=== PATIENT | female | born 1960 | race Two or more races ===

== ENCOUNTER 2020-01-13 17:39 | Inpatient (IN) | payer MEDICARE, MEDICAID ==
[~2020-01-13] VITALS: Ht 167.6 cm; Wt 113.4 kg
[2020-01-13] MEDS ORDERED: ONDANSETRON HCL 4MG/2ML INJ IV STA (18:23)
[2020-01-13] MEDS ORDERED: SODIUM CHLORIDE 0.9% 1,000 ML IV ONE (18:30)
[2020-01-13] MEDS ORDERED: METOCLOPRAMIDE HCL 10MG/2ML VIAL IV ONE (19:15)
[2020-01-13] MEDS ORDERED: MAGNESIUM 1 G PREMIX 100 ML IV ONE (19:15)
[2020-01-13 20:01] LABS: CLARITY URINE CLOUDY (CLEAR); COLOR URINE YELLOW (YELLOW); KETONES URINE NEGATIVE (NEGATIVE); LEUKOCYTE ESTERASE URINE NEGATIVE (NEGATIVE); NITRITE URINE NEGATIVE (NEGATIVE); OCCULT BLOOD URINE TRACE (NEGATIVE); PROTEIN URINE NEGATIVE (NEGATIVE); SPECIFIC GRAVITY URINE 1.028 (1.005-1.030)
[2020-01-13 20:07] LABS: EOSINOPHILS % 0.9 % (0.0-5.0); HEMATOCRIT. 45.3 % (36.0-48.0); HEMOGLOBIN. 14.9 g/dL (12.0-16.0); LYMPHOCYTES % 28.7 % (20.0-50.0); MEAN CORPUSCULAR HEMOGLOBIN 28.1 pg (28.0-32.0); MEAN CORPUSCULAR VOLUME 85.3 fL (81.0-99.0); MEAN PLATELET VOLUME 7.9 fl (7.4-10.4); MONOCYTES % 4.5 % (2.0-8.0); NEUTROPHILS % 64.9 % (40.0-76.0); PLATELET 326 x1000/uL (130-400); RED BLOOD CELL COUNT 5.31 mill/uL (4.2-5.4); RED CELL DISTRIBUTION WIDTH 15.1 % (11.6-14.6)
[2020-01-13 20:13] LABS: CHLORIDE 106 mEq/L (98-107)
[2020-01-13 20:16] LABS: METHADONE URINE SCREEN NEGATIVE (NEGATIVE)
[2020-01-13 20:17] LABS: *AMPHETAMINES SCREEN URINE NEGATIVE (NEGATIVE); *BARBITURATES SCREEN URINE NEGATIVE (NEGATIVE); *BENZODIAZEPINES SCREEN URINE NEGATIVE (NEGATIVE); CANNABINOID URINE SCREEN NEGATIVE (NEGATIVE); OPIATES URINE SCREEN NEGATIVE (NEGATIVE); PHENCYCLIDINE URINE SCREEN NEGATIVE (NEGATIVE)
[2020-01-13 20:18] LABS: *COCAINE SCREEN URINE NEGATIVE (NEGATIVE); ETHANOL BLOOD < 10 mg/dL; PROTHROMBIN TIME 10.3 sec (9.6-11.0)
[2020-01-13] MEDS ORDERED: ONDANSETRON HCL 4MG/2ML INJ IV ONE (23:30)
[2020-01-13] MEDS ORDERED: MECLIZINE 25MG TABLET PO ONE (23:30)
[2020-01-14 04:50] VITALS: BP 161/70
[2020-01-14] MEDS ORDERED: POTA10CA42 PO (05:13)
[2020-01-14] MEDS ORDERED: CYCL10TA7 PO (05:13)
[2020-01-14] MEDS ORDERED: ASPI-1497 PO (05:13)
[2020-01-14] MEDS ORDERED: AMLO10TA80 PO (05:13)
[2020-01-14] MEDS ORDERED: GLIM1TAB PO (05:13)
[2020-01-14] MEDS ORDERED: ERGO2000 PO (05:13)
[2020-01-14] MEDS ORDERED: METF-416 PO (05:13)
[2020-01-14] MEDS ORDERED: ATOR10TA PO (05:13)
[2020-01-14] MEDS ORDERED: DEXTROSE 50% WATER 50ML SYRINGE IV PRN (05:15)
[2020-01-14] MEDS ORDERED: CYCLOBENZAPRINE 10MG TABLET PO PRN (05:15)
[2020-01-14] MEDS ORDERED: HYDROCODONE/ACETAMINOPHEN 5/325MG TABLET PO PRN (05:15)
[2020-01-14] MEDS: INSULIN LISPRO 100 UNITS/ML SUBCUT SCH ×4 (06:06→20:17)
[2020-01-14] MEDS: BLOOD SUGAR DIAGNOSTIC STRIP TEST SCH ×4 (06:06→19:47)
[2020-01-14 08:00] VITALS: BP 120/75
[2020-01-14] MEDS: ASPIRIN 81MG EC TABLET PO SCH (09:20)
[2020-01-14] MEDS: AMLODIPINE 10MG TABLET PO SCH (09:20)
[2020-01-14] MEDS: LISINOPRIL 20MG TABLET PO SCH (09:20)
[2020-01-14 12:00] VITALS: BP 135/67
[2020-01-14] MEDS: CLOPIDOGREL 75MG TABLET PO SCH (15:30)
[2020-01-14 16:00] VITALS: BP_SYST 134; BP_SYST 135; BP_DIAS 67; BP_DIAS 68
[2020-01-14] MEDS: ATORVASTATIN CALCIUM 10MG TABLET PO SCH (19:47)
[2020-01-14] MEDS: ENOXAPARIN 30MG/0.3ML SYR SUBCUT SCH (19:47)
[2020-01-14 20:00] VITALS: BP 135/63
[2020-01-15] VITALS: BP 149/78
[2020-01-15 04:00] VITALS: BP 144/74
[2020-01-15] MEDS: BLOOD SUGAR DIAGNOSTIC STRIP TEST SCH ×5 (06:21→20:28)
[2020-01-15] MEDS: INSULIN LISPRO 100 UNITS/ML SUBCUT SCH ×4 (06:21→20:44)
[2020-01-15 08:00] VITALS: BP 140/70
[2020-01-15] MEDS: CLOPIDOGREL 75MG TABLET PO SCH (08:20)
[2020-01-15] MEDS: ENOXAPARIN 30MG/0.3ML SYR SUBCUT SCH ×2 (08:21→20:27)
[2020-01-15] MEDS: ASPIRIN 81MG EC TABLET PO SCH (08:21)
[2020-01-15] MEDS: LISINOPRIL 20MG TABLET PO SCH (08:21)
[2020-01-15] MEDS: AMLODIPINE 10MG TABLET PO SCH (08:21)
[2020-01-15 12:00] VITALS: BP 144/80
[2020-01-15 16:00] VITALS: BP 145/76
[2020-01-15 20:00] VITALS: BP 149/76
[2020-01-15] MEDS: ATORVASTATIN CALCIUM 10MG TABLET PO SCH (20:28)
[2020-01-16] VITALS: BP 150/82
[2020-01-16 04:00] VITALS: BP 143/81
[2020-01-16] MEDS: INSULIN LISPRO 100 UNITS/ML SUBCUT SCH (06:49)
[2020-01-16] MEDS: BLOOD SUGAR DIAGNOSTIC STRIP TEST SCH (06:49)
[2020-01-16 08:00] VITALS: BP 144/81
[2020-01-16] MEDS: LISINOPRIL 20MG TABLET PO SCH (09:31)
[2020-01-16] MEDS: AMLODIPINE 10MG TABLET PO SCH (09:31)
[2020-01-16] MEDS: ASPIRIN 81MG EC TABLET PO SCH (09:31)
[2020-01-16] MEDS: ENOXAPARIN 30MG/0.3ML SYR SUBCUT SCH (09:32)
[2020-01-16] MEDS: CLOPIDOGREL 75MG TABLET PO SCH (09:32)
[2020-01-16 12:00] VITALS: BP 140/75
[2020-01-16] MEDS ORDERED: CLOP75TA15 PO (12:31)
[2020-01-16] MEDS ORDERED: ASPI-1497 PO (12:31)
[2020-01-16] MEDS ORDERED: LOSA50TA41 MT (12:31)
[2020-01-16 15:08] VITALS: BP 140/75
[2020-01-16 15:53] LABS: BASOPHILS % 1.1 % (0.0-2.0); EOSINOPHILS % 2.2 % (0.0-5.0); HEMATOCRIT. 41.7 % (36.0-48.0); HEMOGLOBIN. 13.6 g/dL (12.0-16.0); MEAN CORPUSCULAR HEMOGLOBIN 28.2 pg (28.0-32.0); MEAN CORPUSCULAR VOLUME 86.1 fL (81.0-99.0); MEAN PLATELET VOLUME 7.7 fl (7.4-10.4); MONOCYTES % 6.6 % (2.0-8.0); NEUTROPHILS % 47.1 % (40.0-76.0); PLATELET 279 x1000/uL (130-400); RED BLOOD CELL COUNT 4.84 mill/uL (4.2-5.4); RED CELL DISTRIBUTION WIDTH 14.8 % (11.6-14.6)
== END 2020-01-16 16:03 | disposition home or self-care (01) | DRG 65 ==
LOC: ER 17:39 → 8WST 01-14 00:09 → ENRESERV 01-14 01:53 → 8WST 01-14 05:06
PROVIDERS: ADMIT Internal Medicine; ATTEND Internal Medicine
DX: I63.89 Other cerebral infarction (principal); Z68.41 Body mass index [BMI] 40.0-44.9, adult; E11.9 Type 2 diabetes mellitus without complications; F17.210 Nicotine dependence, cigarettes, uncomplicated; E66.01 Morbid (severe) obesity due to excess calories; Z96.649 Presence of unspecified artificial hip joint; I10 Essential (primary) hypertension; Z71.3 Dietary counseling and surveillance; Z79.82 Long term (current) use of aspirin; Z98.1 Arthrodesis status; Z79.84 Long term (current) use of oral hypoglycemic drugs; Z79.899 Other long term (current) drug therapy
CPT/HCPCS: 36415; 70551; 71045; 80048; 80053; 80061; 80305; 80307; 80320; 80329; 81003; 82962; 83036; 83605; 83880; 84484; 85025; 86850; 86900; 93005; 93306; 93880; 97162; 99285; J1650; J1815; J2405; J2765; J3475; J7030; J8597; G0480

== ENCOUNTER 2021-01-01 10:16 | Emergency (ER) | payer MEDICARE, MEDICAID ==
[~2021-01-01] VITALS: Ht 167.6 cm; Wt 105.0 kg
[~2021-01-01 10:16] MED LIST: AMLO10TA80 PO; ASPI-1497 PO; ATOR10TA PO; CLOP75TA15 PO; CYCL10TA7 PO; ERGO2000 PO; GLIM1TAB PO; LOSA50TA41 MT; METF-416 PO; POTA10CA42 PO
[2021-01-01] MEDS ORDERED: KETOROLAC 60MG/2ML VIAL IM ONE (12:15)
[2021-01-01] MEDS ORDERED: TRAM50TA3 MT (14:43)
[2021-01-01 14:48] VITALS: BP 137/85
== END 2021-01-01 14:49 | disposition home or self-care (01) ==
LOC: ER 10:16
DX: M25.511 Pain in right shoulder (principal); I10 Essential (primary) hypertension; E11.9 Type 2 diabetes mellitus without complications; E78.00 Pure hypercholesterolemia, unspecified; Z79.899 Other long term (current) drug therapy; Z90.49 Acquired absence of other specified parts of digestive tract
CPT/HCPCS: 73030; 73060; 96372; 99284; J1885

== ENCOUNTER 2021-03-31 19:50 | Emergency (ER) | payer MEDICARE, MEDICAID ==
[~2021-03-31] VITALS: Ht 167.6 cm; Wt 98.0 kg
[~2021-03-31 19:50] MED LIST changes: -CYCL10TA7 PO; +TRAM50TA3 MT
[2021-03-31] MEDS ORDERED: KETOROLAC 60MG/2ML VIAL IM ONE (20:30)
[2021-03-31 21:27] LABS: CLARITY URINE CLOUDY (CLEAR); COLOR URINE YELLOW (YELLOW); KETONES URINE TRACE (NEGATIVE); LEUKOCYTE ESTERASE URINE NEGATIVE (NEGATIVE); NITRITE URINE NEGATIVE (NEGATIVE); OCCULT BLOOD URINE TRACE (NEGATIVE); PH URINE 5.5 (4.5-8.0); PROTEIN URINE NEGATIVE (NEGATIVE); SPECIFIC GRAVITY URINE 1.026 (1.005-1.030); UROBILINOGEN URINE 0.2 E.U./dL (0.2-1.0)
[2021-03-31 21:51] LABS: BASOPHILS % 0.9 % (0.0-2.0); EOSINOPHILS % 2.2 % (0.0-5.0); HEMATOCRIT. 39.3 % (36.0-48.0); HEMOGLOBIN. 13.1 g/dL (12.0-16.0); LYMPHOCYTES % 38.4 % (20.0-50.0); MEAN CORPUSCULAR HEMOGLOBIN 27.3 pg (28.0-32.0); MEAN PLATELET VOLUME 6.9 fl (7.4-10.4); MONOCYTES % 6.2 % (2.0-8.0); NEUTROPHILS % 52.3 % (40.0-76.0); PLATELET 344 x1000/uL (130-400); RED CELL DISTRIBUTION WIDTH 16.7 % (11.6-14.6)
[2021-03-31 21:55] LABS: CHLORIDE 107 mEq/L (98-107)
[2021-03-31] MEDS ORDERED: IBUP-2028 MT (22:51)
[2021-03-31] MEDS ORDERED: CIPR-263 MT (22:51)
[2021-03-31 22:55] VITALS: BP 137/82
== END 2021-03-31 23:03 | disposition home or self-care (01) ==
LOC: ER 19:50
DX: M54.50 Low back pain, unspecified (principal); E11.9 Type 2 diabetes mellitus without complications; E78.00 Pure hypercholesterolemia, unspecified; I10 Essential (primary) hypertension; Z90.49 Acquired absence of other specified parts of digestive tract; Z79.899 Other long term (current) drug therapy
CPT/HCPCS: 36415; 74176; 80053; 81003; 83690; 85025; 96372; 99284; J1885

== ENCOUNTER 2022-04-20 13:21 | Emergency (ER) | payer MEDICARE, MEDICAID ==
[~2022-04-20] VITALS: Ht 167.6 cm; Wt 99.0 kg
[~2022-04-20 13:21] MED LIST changes: +CIPR-263 MT; +IBUP-2028 MT
[2022-04-20] MEDS ORDERED: LIDOCAINE 5% PATCH TOP SCH (16:30)
[2022-04-20] MEDS ORDERED: ACETAMINOPHEN 325MG TABLET PO ONE (16:30)
[2022-04-20] MEDS ORDERED: ACET-2708 MT (16:38)
[2022-04-20] MEDS ORDERED: LIDO700A15 TP (16:38)
[2022-04-20 17:04] VITALS: BP 177/79
== END 2022-04-20 17:06 | disposition home or self-care (01) ==
LOC: ER 13:21
DX: S39.012A Strain of muscle, fascia and tendon of lower back, initial encounter (principal); X58.XXXA Exposure to other specified factors, initial encounter; Y93.89 Activity, other specified; Y92.89 Other specified places as the place of occurrence of the external cause; Y99.8 Other external cause status; E11.9 Type 2 diabetes mellitus without complications; E78.00 Pure hypercholesterolemia, unspecified; I10 Essential (primary) hypertension; Z90.49 Acquired absence of other specified parts of digestive tract; Z79.899 Other long term (current) drug therapy
CPT/HCPCS: 99283

== ENCOUNTER 2024-08-26 16:57 | Emergency (ER) | payer MEDICARE, MEDICAID ==
[~2024-08-26] VITALS: Ht 170.2 cm; Wt 91.0 kg
[~2024-08-26 16:57] MED LIST changes: +ACET-2708 MT; -GLIM1TAB PO; +GLIM1TAB55 PO; +LIDO-53 TP; -POTA10CA42 PO; +POTA10CA93 PO
[2024-08-26 17:01] VITALS: O2SAT 95
[2024-08-26 17:24] LABS: BG DEOXYHEMOGLOBIN 12.4 % (0.0-5.0)
[2024-08-26] MEDS: LACTATED RINGERS 1,000 ML IV ONE (17:36)
[2024-08-26 17:38] LABS: BASOPHILS % 1.9 % (0.0-2.0); HEMATOCRIT. 44.9 % (36.0-48.0); LYMPHOCYTES % 42.5 % (20.0-50.0); MEAN CORPUSCULAR HEMOGLOBIN 28.3 pg (28.0-32.0); MEAN CORPUSCULAR HGB CONC 33.5 g/dL (31.0-37.0); MEAN CORPUSCULAR VOLUME 84.5 fL (81.0-99.0); MEAN PLATELET VOLUME 8.5 fl (7.4-10.4); NEUTROPHILS % 48.6 % (40.0-76.0); PLATELET 248 x1000/uL (130-400); RED BLOOD CELL COUNT 5.31 mill/uL (4.2-5.4); RED CELL DISTRIBUTION WIDTH 14.8 % (11.6-14.6); WHITE BLOOD COUNT 9.6 x1000/uL (4.5-11.0)
[2024-08-26] MEDS: INSULIN REGULAR (HUMULIN R) 1000UNITS/10ML VIAL SUBCUT ONE (17:45)
[2024-08-26 17:49] LABS: INR 0.9; PROTHROMBIN TIME 10.2 sec (9.6-11.0)
[2024-08-26 17:50] LABS: CHLORIDE 95 mEq/L (98-107); POTASSIUM 3.7 mEq/L (3.5-5.1); SODIUM 131 mEq/L (136-145)
[2024-08-26 17:51] LABS: CALCIUM 9.5 mg/dL (8.7-10.4); CARBON DIOXIDE 24 mEq/L (21-32)
[2024-08-26 17:56] LABS: CREATININE 1.2 mg/dL (0.6-1.0); UREA NITROGEN BLOOD 14 mg/dL (9-23)
[2024-08-26 17:57] LABS: TROPONIN I HIGH SENSITIVITY 4 ng/L (3.0-34)
[2024-08-26 17:58] LABS: BETA HYDROXYBUTYRATE 1.6 mMol/L (0.0-0.3)
[2024-08-26 18:13] LABS: GLUCOSE 430 mg/dL (70-105)
[2024-08-26 19:12] VITALS: BP 145/63; PULSE 53; RESP 13; TEMP 36.8; O2SAT 99
== END 2024-08-26 19:15 | disposition home or self-care (01) ==
LOC: ER 16:57
DX: E11.65 Type 2 diabetes mellitus with hyperglycemia (principal); I10 Essential (primary) hypertension; E78.00 Pure hypercholesterolemia, unspecified; Z79.899 Other long term (current) drug therapy
CPT/HCPCS: 99284; 96360; 80048; 82010; 82962; 83880; 83735; 83930; 85025; 85610; 84484; 36415; 82375; 82803; 93005; J7120; J1815